=== PATIENT | female | born 1965 | race Two or more races ===

== ENCOUNTER 2021-09-14 18:17 | Emergency (ER) | payer OTHER ==
[~2021-09-14] VITALS: Ht 154.9 cm; Wt 82.6 kg
--- NOTE | 2021-09-14 18:45 | NUR ---
PT C/O HEADACHE, N/V, BLURRED VISION S/P FALLING AND HITTING HER HEAD X 1 MONTH. ADMITS BLURRY VISION IN R EYE SINCE HIT HEAD. A&OX4. R SIDED ARM WEAKNESS. L SIDED WEAKNESS.UNABLE TO FULLY SMILE. ON MONITOR. BP IS IN 180S AND 190S.
[2021-09-14] MEDS ORDERED: ACETAMINOPHEN ES 500 MG TABLET PO ONE (19:00)
[2021-09-14] MEDS ORDERED: METOCLOPRAMIDE HCL 10 MG/2 ML VIAL IV ONE (19:00)
[2021-09-14] MEDS ORDERED: SUMATRIPTAN SUCCINATE 6 MG/0.5 ML VIAL SQ ONE ×2 (19:00→19:43)
[2021-09-14] MEDS ORDERED: IV NS 0.9% 1,000 ML BAG IV ONE (19:00)
[2021-09-14 19:04] LABS: BASOPHILS % (AUTO) 0.5 % (0.0-2.0); EOSINOPHILS % (AUTO) 0.6 % (0.0-6.0); HEMATOCRIT 40 % (33-45); HEMOGLOBIN 12.6 g/dL (11.5-14.8); LYMPHOCYTES # (AUTO) 1.8 K/uL (0.8-4.8); LYMPHOCYTES % (AUTO) 18.8 % (20.0-44.0); MEAN CORPUSCULAR HGB CONC 32 g/dl (31.0-36.0); MEAN CORPUSCULAR VOLUME 77 fL (82-100); MONOCYTES # (AUTO) 0.5 K/uL (0.1-1.30); MONOCYTES % (AUTO) 5.5 % (2.0-12.0); NEUTROPHILS # (AUTO) 7.3 K/uL (1.8-8.9); NEUTROPHILS % (AUTO) 74.6 % (43.0-81.0); PLATELET COUNT (AUTO) 321 K/uL (150-450); RED BLOOD CELL COUNT(AUTO) 5.14 MIL/uL (4.0-5.2); WHITE BLOOD COUNT (AUTO) 9.8 K/uL (4.3-11.0)
[2021-09-14 19:13] LABS: CALCIUM, SERUM 9.1 mg/dL (8.5-10.1); CARBON DIOXIDE 28 mmol/L (21-32); CHLORIDE 100 mmol/L (98-107); CREATININE 0.7 mg/dL (0.6-1.3); GLUCOSE 182 mg/dL (74-106); SODIUM SERUM 138 mmol/L (136-145); UREA NITROGEN, BLOOD 12 mg/dL (7-18)
--- NOTE | 2021-09-14 19:24 | NUR ---
MOVED TO ER BED 2
--- NOTE | 2021-09-14 19:26 | NUR ---
BP 190/93 AT THIS TIME. NOTIFIED.
[2021-09-14] MEDS ORDERED: LABETALOL 20 MG/4 ML VIAL IV ONE (19:30)
[2021-09-14] MEDS ORDERED: IV NS 0.9% 250 ML IV ONE (19:34)
[2021-09-14] MEDS ORDERED: IOHEXOL-350 100 ML VIAL IV ONE (19:34)
[2021-09-14] MEDS ORDERED: METOCLOPRAMIDE HCL 10 MG/2 ML VIAL ONE (19:44)
[2021-09-14] MEDS ORDERED: ACETAMINOPHEN ES 500 MG TABLET ONE (19:44)
[2021-09-14] MEDS ORDERED: LABETALOL HCL IV 100MG VIAL ONE (19:57)
[2021-09-14] MEDS ORDERED: METO50TA16 PO (21:23)
[2021-09-14] MEDS ORDERED: LOSA1TAB42 PO (21:23)
[2021-09-14] MEDS ORDERED: SUMA100T16 PO (21:23)
[2021-09-14] MEDS ORDERED: METO-295 PO (21:23)
--- NOTE | 2021-09-14 21:45 | NUR ---
LABETALOL NT GIVEN D/T HR 51. MADE AWARE ,PER MD HOLD IT.
--- NOTE | 2021-09-14 21:46 | NUR ---
Patient discharged to home in stable condition. Written and verbal after care instructions given. Patient verbalizes understanding of instruction.IV removed. Catheter intact and site benign. Pressure and 4x4 applied to site. No bleeding noted.
[2021-09-14 21:47] VITALS: BP 168/82
== END 2021-09-14 21:49 | disposition home or self-care (01) ==
LOC: ER 18:26
DX: G43.909 Migraine, unspecified, not intractable, without status migrainosus (principal); I10 Essential (primary) hypertension; R11.2 Nausea with vomiting, unspecified; E11.9 Type 2 diabetes mellitus without complications; Z86.73 Personal history of transient ischemic attack (TIA), and cerebral infarction without residual deficits; Z79.899 Other long term (current) drug therapy
CPT/HCPCS: 36415; 70450; 70496; 80048; 84484; 85025; 85730; 96361; 96372; 96374; 99285; J2765; J3030; J3490; J7050; Q9967